=== PATIENT | male | born 1995 | race Asian ===

== ENCOUNTER 2017-10-16 14:31 | Emergency (ER) | payer OTHER ==
[2017-10-16] MEDS: ACETAMINOPHEN 325 MG TAB PO (16:14)
== END 2017-10-16 16:38 | disposition home or self-care (01) ==
LOC: FTE 14:31
DX: S00.81XA Abrasion of other part of head, initial encounter (principal); Y04.8XXA Assault by other bodily force, initial encounter
CPT/HCPCS: 99283; Z7502